=== PATIENT | male | born 1985 | race Caucasian/White ===

== ENCOUNTER 2022-10-18 21:37 | Outpatient (CLI) | payer SELFPAY | END 2022-10-18 21:38 | disposition home or self-care (01) | LOC: AMB 10-25 14:31 | PROVIDERS: Visit Provider Family Medicine | DX: S09.90XA Unspecified injury of head, initial encounter (principal); V49.09XA Driver injured in collision with other motor vehicles in nontraffic accident, initial encounter; Y92.39 Other specified sports and athletic area as the place of occurrence of the external cause | CPT/HCPCS: A0998 ==